=== PATIENT | female | born 1940 | race Hispanic/Latino ===

== ENCOUNTER → 2018-09-15 | Outpatient (CLI) | payer MEDICARE ==
[~2018-09-15] MED LIST: ACTOS30 MG PO; ARICEPT10 MG PO; CARVEDILOL12.5 MG PO; CIPRO500 MG PO; COUMADIN2.5 MG PO; COUMADIN3 MG PO; DIOVAN320 MG PO; ERGOCALCIFEROL1 GM; FUROSEMIDE20 MG PO; FUROSEMIDE40 MG PO; GLIPIZIDE10 MG PO; JANUVIA25 MG PO; LANTUS100 UNITS/; LEVOTHYROXINE25 MCG PO; LISINOPRIL2.5 MG PO; NAMENDA10 MG; NEXIUM40 MG PO; PANTOPRAZOLE SO40 MG PO; SIMVASTATIN40 MG PO; SPIRONOLACTONE25 MG PO; TRAMADOL-ACETAMI1 EA PO; TRILIPIX135 MG PO
[2018-09-15 08:52] LABS: CREATININE, SERUM 2.13 mg/dL (0.57-1.11)
== END ==
LOC: CT 07:17
PROVIDERS: ATTEND Internal Medicine Interventional Cardiology
DX: I20.8 Other forms of angina pectoris (principal)
CPT/HCPCS: 36415; 82565; 84520

== ENCOUNTER → 2018-09-26 | Day surgery (SDC) | payer MEDICARE ==
[~2018-09-26] VITALS: Ht 152.4 cm; Wt 69.4 kg
[~2018-09-26] MED LIST changes: +LIDOCAINE HCL 2% LOCAL INJ 5 ML SDV VIAL INJ ONE; +PROPOFOL IV EMULSION 10 MG/ML 20 ML VIAL ONE
--- OUTSIDE RECORDS SUMMARY | 2018-09-26 07:04 | XMS REPORT | Summary of Care ---
Author Author [facility] Organization [facility] Address Unknown Phone Unavailable Encounter HQ Reina(FIN) [id number] Date(s): 08/30/17 - 08/30/17 [facility] [address] [place] [address]- [phone] Discharge Disposition: Home or Self Care Attending Physician: Nafisa Lee DO Referring Physician: Nafisa Lee DO Vital Signs Most recent to 1 oldest [Reference Range]: Height 152.4 cm (08/30/17 8:52 AM) Weight 74.091 kg (08/30/17 8:52 AM) Body Mass Index 31.9 m2 (08/30/17 8:52 AM) Problem List Condition Effective Dates Status Health Status Informant Diabetes(Confirmed) Resolved Allergies, Adverse Reactions, Alerts Substance Reaction Severity Status NKDA Active Medications No data available for this section Results No data available for this section Immunizations No data available for this section Procedures No data available for this section Social History No data available for this section Assessment and Plan No data available for this section
--- OUTSIDE RECORDS SUMMARY | 2018-09-26 07:04 | XMS REPORT | Summary of Care ---
Author Author [facility] [place] Organization [facility] [place] Address Unknown Phone Unavailable Encounter HQ Encntr_alias(FIN) [id number] Date(s): 03/23/17 - 03/23/17 [facility] [place] [address] [place] [address]- [phone] Discharge Disposition: Home or Self Care Attending Physician: Tay Perera MD Vital Signs No data available for this section Problem List Condition Effective Dates Status Health [...]
--- OUTSIDE RECORDS SUMMARY | 2018-09-26 07:04 | XMS REPORT | Summary of Care ---
Author Author [facility] [place] Organization [facility] [place] Address Unknown Phone Unavailable Encounter HQ Encntr_alias(FIN) [id number] Date(s): 10/08/16 - 10/08/16 [facility] [place] [address] [place] [address]- [phone] Discharge Disposition: Home or Self Care Attending [...]
--- OUTSIDE RECORDS SUMMARY | 2018-09-26 07:04 | XMS REPORT | Continuity of Care Document ---
Author Author [facility] Organization [facility] Address Unknown Phone Unavailable Care Team Providers Care Six Color Press Operator Name Role Phone Life[employer] Information Neuro Kinetics Unavailable Unavailable Problems Problem Status Onset Date Classification Date Reported Comments Source R07.2=PRECORDIAL PAIN DR Active 07/25/2017 [facility] Z12.31 - ENCNTR SCREEN MAMMOGRAM FOR MA Active 10/01/2016 JOSUÉ Carlos Discharge Diagnosis: Acute back pain 10/14/2013 10/16/2013 [facility] BACK PAIN Active 10/13/2013 [facility] Final: Other Screening Mammogram 08/16/2014 JOSUÉ Carlos Diabetes Resolved Problem 05/29/2018 JOSUÉ Carlos,[facility] Medications Medication Details Route Status Patient Instructions Ordering Provider Order Date Source Docusate Sodium 100 MG Oral Capsule [Colace] 100 mg=1 cap, PO, BID, Constipation, # 20 cap, 0 Refill(s) Active 10/14/2013 [facility] Acetaminophen 325 MG / Hydrocodone Bitartrate 5 MG Oral Tablet [[place] 5/325] 1-2 tab, PO, Q4-6H, Pain, # 15 tab, 0 Refill(s) Active 10/14/2013 [facility] Insulin Glargine 100 UNT/ML Injectable Solution [Lantus] 25 units, Bedtime, 0 Refill(s) Active 10/14/2013 [facility] Albuterol 1 MG/ML Inhalant Solution 2.5 mg=0, INHALATION, Q6H, # 60 ea, 0 Refill(s) Active 10/14/2013 [facility] spironolactone 25 mg oral tablet =12.5 mg, PO, Daily, 0 Refill(s) Active 10/14/2013 [facility] ergocalciferol 50,000 intl units oral capsule 50,000 IntlUnit=1 cap, PO, 2x/Wk, # 24 cap, 0 Refill(s) Active 10/14/2013 [facility] Tramadol 37.5 mg, PO, TID, 0 Refill(s) Active 10/14/2013 [facility] carvedilol 12.5 mg oral tablet 12.5 mg=1 tab, PO, Q12H, # 60 tab, 0 Refill(s) Active 10/14/2013 [facility] Levothyroxine Sodium 0.025 MG Oral Tablet [Levothroid] 25 microgram=1 tab, PO, Daily, # 30 tab, 0 Refill(s) Active 10/14/2013 [facility] Lisinopril 2.5 mg, PO, Daily, 0 Refill(s) Active 10/14/2013 [facility] simvastatin 40 mg oral tablet 40 mg=1 tab, PO, Bedtime, # 30 tab, 0 Refill(s) Active 10/14/2013 [facility] Memantine hydrochloride 10 MG Oral Tablet [Namenda] 10 mg=1 tab, PO, BID, # 60 tab, 0 Refill(s) Active 10/14/2013 [facility] fenofibric acid 135 mg oral delayed release capsule 135 mg=1 cap, PO, Daily, # 30 cap, 0 Refill(s) Active 10/14/2013 [facility] Glipizide 5 MG Oral Tablet 5 mg=1 tab, PO, Daily, # 30 tab, 0 Refill(s) Active 10/14/2013 [facility] Furosemide 10 mg, PO, Daily, 0 Refill(s) Active 10/14/2013 [facility] Sodium Chloride 0.154 MEQ/ML Injectable Solution 1,000 mL, 1,000 ml/hr, Infuse Over: 1 hr, Route: IV, 1,000, Drug form: INJ, ONCE, Priority: STAT, Dosing Weight 70.455 kg, Start date: 10/14/13 0:25:00, Duration: 1 doses or times, Stop date: 10/14/13 0:25:00 Inactive 10/14/2013 [facility] Acetaminophen 325 MG / Hydrocodone Bitartrate 5 MG Oral Tablet [[place] 5/325] 1 tab, Route: PO, Dosing Weight 70.455, kg, ONCE, Start date: 10/13/13 23:35:00, Stop date: 10/13/13 23:35:00 No Longer Active 10/14/2013 [facility] Allergies, Adverse Reactions, Alerts No Known Medication Allergies Immunizations No Data Provided for This Section Results Order Name Results Value Reference Range Date Interpretation Comments Source URINE AND STOOL UA RBC 3-5 /HPF 0 - 2 10/14/2013 [facility] URINE AND STOOL UA Bacteria Moderate /HPF None Seen /HPF 10/14/2013 [facility] URINE AND STOOL UA Sq Epi Moderate /LPF Few /LPF 10/14/2013 [facility] URINE AND STOOL UA WBC 11-20 /HPF 0 - 5 10/14/2013 [facility] URINE AND STOOL Micro? Performed (10/14/13 1:40 AM) 10/14/2013 [facility] URINE AND STOOL UA Nitrite Negative (10/14/13 1:40 AM) Negative 10/14/2013 [facility] URINE AND STOOL UA Leuk Est Moderate *ABN* (10/14/13 1:40 AM) Negative 10/14/2013 [facility] URINE AND STOOL UA Blood Large *ABN* (10/14/13 1:40 AM) Negative 10/14/2013 [facility] URINE AND STOOL UA Urobilinogen 0.2 0.1 - 1.0 10/14/2013 [facility] URINE AND STOOL UA Glucose >=1000 mg/dL Negative mg/dL 10/14/2013 [facility] URINE AND STOOL UA Bili Negative *NA* (10/14/13 1:40 AM) Negative 10/14/2013 [facility] URINE AND STOOL UA Protein Trace *ABN* (10/14/13 1:40 AM) Negative 10/14/2013 [facility] URINE AND STOOL UA Ketones Negative *NA* (10/14/13 1:40 AM) Negative 10/14/2013 [facility] URINE AND STOOL UA pH 7.0 5.0 - 8.0 10/14/2013 [facility] URINE AND STOOL UA Color Yellow *NA* (10/14/13 1:40 AM) Yellow 10/14/2013 [facility] URINE AND STOOL UA Spec Grav <=1.005 *NA* (10/14/13 1:40 AM) <=1.030 10/14/2013 [facility] URINE AND STOOL UA Turbidity Slight Cloudy (10/14/13 1:40 AM) Clear 10/14/2013 [facility] CHEM PANEL eGFR 37 10/14/2013 <sup>1</sup>Result Comment: The eGFR is calculated using the CKD-EPI formula. In most young, healthy individuals the eGFR will be >90 mL/min/1.73m2. The eGFR declines with age. An eGFR of 60-89 may be normal in some populations, particularly the elderly, for whom the CKD-EPI formula has not been extensively validated. Use of the eGFR is not recommended in the following populations:& lt;br/>
Individuals with unstable creatinine concentrations, including patients and those with serious co-morbid conditions.

Patients with extremes in muscle mass or diet.

The data above are obtained from the National Kidney Disease Education Program (NKDEP) which additionally recommends that when the eGFR is used in patients with extremes of body mass index for purposes of drug dosing, the eGFR should be multiplied by the estimated BMI. [facility] CHEM PANEL Calcium Lvl 7.9 8.5 - 10.5 10/14/2013 [facility] CHEM PANEL CO2 29 24 - 32 10/14/2013 [facility] CHEM PANEL Potassium Lvl 4.1 3.5 - 5.1 10/14/2013 [facility] CHEM PANEL Chloride Lvl 101 95 - 109 10/14/2013 [facility] CHEM PANEL Glucose Lvl 354 70 - 99 10/14/2013 <sup>2</sup>Interpretive Data: Adult reference range values reflect the clinical guidelines
of the [place] [employer]. [facility] CHEM PANEL BUN 32 7 - 22 10/14/2013 [facility] CHEM PANEL Creatinine Lvl 1.4 0.5 - 1.4 10/14/2013 [facility] CHEM PANEL Sodium Lvl 136 135 - 145 10/14/2013 [facility] CHEM PANEL AGAP 10.1 10.0 - 20.0 10/14/2013 [facility] HEMATOLOGY Lymphocytes 14.3 20.0 - 40.0 10/14/2013 [facility] HEMATOLOGY Segs 76.9 45.0 - 75.0 10/14/2013 [facility] HEMATOLOGY Eosinophils 2.3 0.0 - 4.0 10/14/2013 [facility] HEMATOLOGY Basophils 0.5 0.0 - 1.0 10/14/2013 [facility] HEMATOLOGY Monocytes 6.0 2.0 - 12.0 10/14/2013 [facility] HEMATOLOGY Eosinophils # 0.2 0.0 - 0.5 10/14/2013 [facility] HEMATOLOGY Monocytes # 0.5 0.0 - 0.8 10/14/2013 [facility] HEMATOLOGY Lymphocytes # 1.1 1.0 - 5.5 10/14/2013 [facility] HEMATOLOGY Segs-Bands # 5.9 1.5 - 8.1 10/14/[address] [facility] RDW 16.2 11.5 - 14.5 10/14/[address] [facility] Platelet 231 133 - 450 10/14/[address] [facility] MPV 8.3 7.4 - 10.4 10/14/[address] [facility] MCHC 33.1 32.0 - 36.0 10/14/[address] [facility] Hct 27.4 36.0 - 48.0 10/14/[address] [facility] MCV 97.0 81.0 - 99.0 10/14/[address] [facility] MCH 32.1 27.0 - 31.0 10/14/[address] [facility] RBC 2.83 4.20 - 5.40 10/14/[address] [facility] Hgb 9.1 12.0 - 16.0 10/14/[address] [facility] WBC 7.6 3.7 - 10.4 10/14/2013 [facility] Pathology Reports No Data Provided for This Section Diagnostic Reports Report Value Date Source Chest 2 views DX EXAM: XR CHEST 2 VIEWS DATE: 05/26/2018 11:51 PAROLE DIRECTOR INDICATION: - R06.02 Shortness of breath COMPARISON: 09/17/2013 TECHNIQUE: PA and lateral chest radiographs FINDINGS: There is blunting of the right costophrenic sulcus. Mild hazy opacities are seen in the right lung base. The upper lungs are clear. The cardiomediastinal silhouette is moderately enlarged, but stable. There is no acute bony abnormality. There is a chronic compression deformity of T12. IMPRESSION: Stable cardiomegaly. Small right pleural effusion with or without mild airspace disease in the right lung base. 05/26/2018 JOSUÉ Carlos Cardiac SPECT multi studies NM Patient Name: INDY MCFARLAND : 1940; Age: 77 years Female MR: [id number] Study: Cardiac SPECT multi studies NM 08/30/2017 8:53 AM CDT Clinical Indication: - cardiac murmur COMPARISON: None TECHNIQUE: 10 mCis of Technetium 99m Cardiolite were administered for the stress portion of the examination and 30 mCis for the resting study. FINDINGS: Fixed defect is identified in the apex. CARDIAC PERFUSION STUDY: FINDINGS: The end-diastolic volume is estimated at 109 ml with end-systolic volume at 56 ml. The ejection fraction is calculated at 48%. IMPRESSION: 1. Fixed apical defect compatible with scarring. 2. Decreased ejection fraction. SL: [id number] 08/30/2017 [facility] DX Exam: Left foot x-ray, 3 views Reason for Exam: - L03.032 Cellulitis of left toe Comparison Exam: None Discussion: No acute bony abnormalities identified. No evidence seen to suggest osteomyelitis. No suspicious osteoblastic or osteolytic lesions seen to suggest pathologic involvement. Heavy vascular calcifications seen within the deep arterial system predominantly the dorsalis pedis artery. Impression: 1. No evidence seen to suggest osteomyelitis. 03/23/2017 JOSU[facility] [place] Breast Mammo Scrn CESIA incl CAD MA - BREAST MAMMO SCRN CESIA INCL CAD MA BILATERAL DIGITAL SCREENING MAMMOGRAM WITH CAD: 10/08/2016 CLINICAL: Screening/Z12.31. Current study was evaluated with a Computer Aided Detection (CAD) system. Comparison is made to exams dated: 08/13/2014 mammogram, 04/16/2013 mammogram and 04/12/2012 mammogram - [facility]. There are scattered fibroglandular densities in both breasts. Findings: No significant masses, calcifications, or other findings are seen in either breast. There has been no significant interval change. IMPRESSION: BENIGN There is no mammographic evidence of malignancy. A 1 year screening mammogram is recommended. Professional services are provided by the [facility]. Sarah finley/ap:10/11/2016 09:50:39 Rn Labor And Delivery: Blanca Mir, [facility] This exam was dictated and interpreted by [id number] at [facility]. letter sent: Normal exam Mammogram BI-RADS: 2 [facility] [place] Bone Density DXA [employer] MA - Bone Density DXA [employer] MA BONE DENSITY EVALUATION: 10/08/2016 CLINICAL DATA: Post menopausal and clinical risk for osteoporosis. M81.0 Age related osteoporosis without current pathological fracture. RISK FACTORS: . FINDINGS: Bone density evaluation was performed 10/08/2016 on the AP L3-L4 region of spine using a Hologic unit. The BMD average for the exam is 0.879 g/cm2. The T-score is -2.00 and the Z-score is 0.60. This matches the World Health Organization's criteria for osteopenia and places the patient at a medium risk for fracture. An additional bone density evaluation was performed 10/08/2016 on the right femur neck using a Hologic unit. The BMD average for the exam is 0.654 g/cm2. The T-score is -1.80 and the Z-score is 0.30. This matches the World Health Organization's criteria for osteopenia and places the patient at a medium risk for fracture. An additional bone density evaluation was performed 10/08/2016 on the right hip using a Hologic unit. The BMD average for the exam is 0.783 g/cm2. The T-score is 1.30 and the Z-score is 0.60. This matches the World Health Organization's criteria for normal bone density and places the patient within normal limits of fracture risk. An additional bone density evaluation was performed 10/08/2016 on the left femur neck using a Hologic unit. The BMD average for the exam is 0.584 g/cm2. The T- score is -2.40 and the Z-score is -0.30. This matches the World Health Organization's criteria for osteopenia and places the patient at a medium risk for fracture. An additional bone density evaluation was performed 10/08/2016 on the left hip using a Hologic unit. The BMD average for the exam is 0.807 g/cm2. The T-score is -1.10 and the Z-score is 0.70. This matches the World Health Organization's criteria for osteopenia and places the patient at a medium risk for fracture. IMPRESSION: OSTEOPENIA Patient is at medium risk for fracture. Professional services are provided by the [facility]. This exam was dictated and interpreted by [id number] at [facility]. Sarah finley/ap:10/11/2016 09:34:51 Rn Labor And Delivery: Deepali QUEZADA(Fadi)(Lorena), Martir Carlos 10/08/2016 JOSUÉ Carlos Knee 1-2 Views unilateral DX EXAMINATION: Left knee AP and lateral. HISTORY: pain; left knee pain status post fall; knee osteoarthritis FINDINGS: Frontal and lateral views of the left knee are performed without comparison. There are no fractures. There is moderate medial and patellofemoral compartment osteoarthritis. There is no definite knee effusion. There is an osteocartilaginous loose body along the posterior joint recess. Arterial atherosclerotic calcifications are noted. IMPRESSION: 1. Moderate medial and patellofemoral compartment osteoarthritis of the left knee with an osteocartilaginous loose body along the posterior joint recess. 2. Arterial atherosclerotic disease. 06/05/2015 JOSUÉ [place] Consultation Notes No Data Provided for This Section Discharge Summaries No Data Provided for This Section History and Physicals No Data Provided for This Section Vital Signs Vital Sign Value Date Comments Source Weight 74.091 08/30/2017 [facility] BMI Calculated 31.9 08/30/2017 [facility] Height 152.4 cm 08/30/2017 [facility] Temperature Oral (F) 98 F 10/14/2013 [facility] Systolic (mm Hg) 119 10/14/2013 [facility] Respitory Rate 20 10/14/2013 [facility] Diastolic (mm Hg) 45 10/14/2013 [facility] Systolic (mm Hg) 109 10/14/2013 [facility] Diastolic (mm Hg) 45 10/14/2013 [facility] Respitory Rate 18 10/14/2013 [facility] Weight 70.455 10/14/2013 [facility] Systolic (mm Hg) 118 10/14/2013 [facility] Diastolic (mm Hg) 59 10/14/2013 [facility] Heart Rate 83 10/14/2013 [facility] Respitory Rate 20 10/14/2013 [facility] Temperature Oral (F) 98.5 F 10/14/2013 [facility] Encounters Location Location Details Encounter Type Encounter Number Reason For Visit Attending Provider ADM Date DC Date Status Source [facility] [id number] Hasmukh Anderson 10/14/2013 10/14/2013 [facility] [place] [facility] [id number] Tay Perera 08/13/2014 08/14/2014 [facility] [place] [facility] [place] [facility] [id number] Tay Perera 06/05/2015 06/06/2015 [facility] [place] [facility] [place] [facility] [id number] Tay Perera 10/08/2016 10/09/2016 [facility] [place] [facility] [place] [facility] [id number] Tay Perera 03/23/2017 03/24/2017 JOSUÉ Gregorya [facility] Outpatient [id number] Nafisa Rainey Jr 08/30/2017 08/31/2017 [facility] [place] [facility] [id number] Tay Perera 05/26/2018 05/27/2018 JOSUÉ [place] Procedures No Data Provided for This Section Assessment and Plan No Data Provided for This Section Plan of Care No Data Provided for This Section Social History Social History Date Source No data available for this section 05/27/2018 JOSUÉ Gregorya No data available for this section 08/31/2017 [facility] Family History No Data Provided for This Section Advance Directives No Data Provided for This Section Functional Status No Data Provided for This Section
--- OUTSIDE RECORDS SUMMARY | 2018-09-26 07:04 | XMS REPORT | Summary of Care ---
Author Author [facility] [place] Organization [facility] [place] Address Unknown Phone Unavailable Encounter HQ Encntr_aliagustina([facility]) [id number] Date(s): 05/26/18 - 05/26/18 [facility] [place] [address] [place] [address] [phone] Discharge Disposition: Home or Self Care Attending Physician: Tay Perera MD Referring Physician: Tay Perera MD Vital Signs No [...]
--- OUTSIDE RECORDS SUMMARY | 2018-09-26 07:05 | XMS REPORT | Summary of Care ---
Author Author [facility] [place] Organization [facility] [place] Address Unknown Phone Unavailable Encounter HQ Encntr_alias(FIN) [id number] Date(s): 06/05/15 - 06/05/15 [facility] [place] [address] [place], [place] [address] [phone] Discharge Disposition: Home Attending Physician: Tay Perera MD Vital Signs [...]
--- OUTSIDE RECORDS SUMMARY | 2018-09-26 07:05 | XMS REPORT | Summary of Care ---
Author Organization Unknown Address Unknown Phone Unavailable Encounter [facility]) [phone] Date(s): 10/13/13 - 10/14/13 [facility] [address] [address] Discharge Diagnosis: Acute back pain Discharge Disposition: Home Physician Attending: Hasmukh Anderson MD Reason for Visit BACK PAIN Vital Signs 1 2 3 Most recent to oldest [Reference Range]: 98 DegF (10/14/13 3:48 AM) 98.5 DegF (10/13/13 10:59 PM) Temperature Oral [96.4-99.1 DegF] 119 mmHg (10/14/13 3:48 AM) 109 mmHg (10/14/13 2:00 AM) 118 mmHg (10/13/13 10:59 PM) Systolic Blood Pressure [90-140 mmHg] 45 mmHg *LOW* (10/14/13 3:48 AM) 45 mmHg *LOW* (10/14/13 2:00 AM) 59 mmHg *LOW* (10/13/13 10:59 PM) Diastolic Blood Pressure [60-90 mmHg] 20 BRMIN (10/14/13 3:48 AM) 18 BRMIN (10/14/13 2:00 AM) 20 BRMIN (10/13/13 10:59 PM) Respiratory Rate [14-20 BRMIN] 83 bpm (10/13/13 10:59 PM) Peripheral Pulse Rate [60-100 bpm] 70.455 kg (10/13/13 10:59 PM) Weight Problem List Condition Effective Dates Status Health Status Informant Diabetes(Confirmed) Resolved Allergies, Adverse Reactions, Alerts Substance Reaction Severity Status NKDA Active Medications albuterol 0.5% inhalation solution 2.5 mg=0, INHALATION, Q6H, # 60 ea, 0 Refill(s) Start Date: 10/14/13 Status: Ordered carvedilol 12.5 mg oral tablet 12.5 mg=1 tab, PO, Q12H, # 60 tab, 0 Refill(s) Start Date: 10/14/13 Status: Ordered Colace 100 mg oral capsule 100 mg=1 cap, PO, BID, Constipation, # 20 cap, 0 Refill(s) Start Date: 10/14/13 Status: Ordered ergocalciferol 50,000 intl units oral capsule 50,000 IntlUnit=1 cap, PO, 2x/Wk, # 24 cap, 0 Refill(s) Start Date: 10/14/13 Status: Ordered fenofibric acid 135 mg oral delayed release capsule 135 mg=1 cap, PO, Daily, # 30 cap, 0 Refill(s) Start Date: 10/14/13 Status: Ordered furosemide 10 mg, PO, Daily, 0 Refill(s) Start Date: 10/14/13 Status: Ordered glipiZIDE 5 mg oral tablet 5 mg=1 tab, PO, Daily, # 30 tab, 0 Refill(s) Start Date: 10/14/13 Status: Ordered Lantus 100 units/mL 25 units, Bedtime, 0 Refill(s) Start Date: 10/14/13 Status: Ordered Levothroid 25 mcg (0.025 mg) oral tablet 25 microgram=1 tab, PO, Daily, # 30 tab, 0 Refill(s) Start Date: 10/14/13 Status: Ordered lisinopril 2.5 mg, PO, Daily, 0 Refill(s) Start Date: 10/14/13 Status: Ordered Namenda 10 mg oral tablet 10 mg=1 tab, PO, BID, # 60 tab, 0 Refill(s) Start Date: 10/14/13 Status: Ordered [place] 5/325 oral tablet 1-2 tab, PO, Q4-6H, Pain, # 15 tab, 0 Refill(s) Start Date: 10/14/13 Stop Date: 10/19/13 Status: Ordered [place] 5/325 oral tablet 1 tab, Route: PO, Dosing Weight 70.455, kg, ONCE, Start date: 10/13/13 23:35:00, Stop date: 10/13/13 23:35:00 Start Date: 10/13/13 Stop Date: 10/14/13 Status: Completed simvastatin 40 mg oral tablet 40 mg=1 tab, PO, Bedtime, # 30 tab, 0 Refill(s) Start Date: 10/14/13 Status: Ordered Sodium Chloride 0.9% (Bolus) IV 1,000 mL, 1,000 ml/hr, Infuse Over: 1 hr, Route: IV, 1,000, Drug form: INJ, ONCE , Priority: STAT, Dosing Weight 70.455 kg, Start date: 10/14/13 0:25:00, Duratio n: 1 doses or times, Stop date: 10/14/13 0:25:00 Start Date: 10/14/13 Stop Date: 10/14/13 Status: Completed spironolactone 25 mg oral tablet =12.5 mg, PO, Daily, 0 Refill(s) Start Date: 10/14/13 Status: Ordered tramadol 37.5 mg, PO, TID, 0 Refill(s) Start Date: 10/14/13 Status: Ordered Results ELECTROLYTES Most recent to 1 oldest [Reference Range]: Sodium Lvl [135-145 136 mEq/L mEq/L] (10/14/13 12:04 AM) Potassium Lvl 4.1 mEq/L [3.5-5.1 mEq/L] (10/14/13 12:04 AM) Chloride Lvl [95-109 101 mEq/L mEq/L] (10/14/13 12:04 AM) CO2 [24-32 mEq/L] 29 mEq/L (10/14/13 12:04 AM) AGAP [10.0-20.0 10.1 mEq/L mEq/L] (10/14/13 12:04 AM) CHEM PANEL Most recent to 1 oldest [Reference Range]: Creatinine Lvl 1.4 mg/dL [0.5-1.4 mg/dL] (10/14/13 12:04 AM) eGFR 37 mL/min/1.73m2 1 *NA* (10/14/13 12:04 AM) BUN [7-22 mg/dL] 32 mg/dL *HI* (10/14/13 12:04 AM) Glucose Lvl [70-99 354 mg/dL 2 mg/dL] *HI* (10/14/13 12:04 AM) Calcium Lvl 7.9 mg/dL [8.5-10.5 mg/dL] *LOW* (10/14/13 12:04 AM) 1Result Comment: The eGFR is calculated using the CKD-EPI formula. In most young, healthy individuals the eGFR will be >90 mL/min/1.73m2. The eGFR declines with age. An eGFR of 60-89 may be normal in some populations, particularly the elderly, for whom the CKD-EPI formula has not been extensively validated. Use of the eGFR is not recommended in the following populations: Individuals with unstable creatinine concentrations, including patients and those with serious co-morbid conditions. Patients with extremes in muscle mass or diet. The data above are obtained from the National Kidney Disease Education Program ( NKDEP) which additionally recommends that when the eGFR is used in patients with extremes of body mass index for purposes of drug dosing, the eGFR should be mul tiplied by the estimated BMI. 2Interpretive Data: Adult reference range values reflect the clinical guidelines of the [place] [employer]. URINE AND STOOL Most recent to 1 oldest [Reference Range]: UA Turbidity [Clear] Slight Cloudy (10/14/13 1:40 AM) UA Color [Yellow] Yellow *NA* (10/14/13 1:40 AM) UA pH [5.0-8.0] 7.0 (10/14/13 1:40 AM) UA Spec Grav <=1.005 [<=1.030] *NA* (10/14/13 1:40 AM) UA Glucose [Negative >=1000 mg/dL mg/dL] *ABN* (10/14/13 1:40 AM) UA Blood [Negative] Large *ABN* (10/14/13 1:40 AM) UA Ketones Negative [Negative] *NA* (10/14/13 1:40 AM) UA Protein Trace [Negative] *ABN* (10/14/13 1:40 AM) UA Urobilinogen 0.2 EU/dL [0.1-1.0 EU/dL] (10/14/13 1:40 AM) UA Bili [Negative] Negative *NA* (10/14/13 1:40 AM) UA Leuk Est Moderate [Negative] *ABN* (10/14/13 1:40 AM) UA Nitrite Negative [Negative] (10/14/13 1:40 AM) UA WBC [0-5 /HPF] 11-20 /HPF *ABN* (10/14/13 1:40 AM) UA RBC [0-2 /HPF] 3-5 /HPF *ABN* (10/14/13 1:40 AM) UA Bacteria [None Moderate /HPF Seen /HPF] *ABN* (10/14/13 1:40 AM) UA Sq Epi [Few /LPF] Moderate /LPF *ABN* (10/14/13 1:40 AM) Micro? Performed (10/14/13 1:40 AM) HEMATOLOGY Most recent to 1 oldest [Reference Range]: WBC [3.7-10.4 K/CMM] 7.6 K/CMM (10/14/13 12:04 AM) RBC [4.20-5.40 2.83 M/CMM M/CMM] *LOW* (10/14/13 12:04 AM) Hgb [12.0-16.0 g/dL] 9.1 g/dL *LOW* (10/14/13 12:04 AM) Hct [36.0-48.0 %] 27.4 % *LOW* (10/14/13 12:04 AM) MCV [81.0-99.0 fL] 97.0 fL (10/14/13 12:04 AM) MCH [27.0-31.0 pg] 32.1 pg *HI* (10/14/13 12:04 AM) MCHC [32.0-36.0 33.1 g/dL g/dL] (10/14/13 12:04 AM) RDW [11.5-14.5 %] 16.2 % *HI* (10/14/13 12:04 AM) Platelet [133-450 231 K/CMM K/CMM] (10/14/13 12:04 AM) MPV [7.4-10.4 fL] 8.3 fL (10/14/13 12:04 AM) Segs [45.0-75.0 %] 76.9 % *HI* (10/14/13 12:04 AM) Lymphocytes 14.3 % [20.0-40.0 %] *LOW* (10/14/13 12:04 AM) Monocytes [2.0-12.0 6.0 % %] (10/14/13 12:04 AM) Eosinophils [0.0-4.0 2.3 % %] (10/14/13 12:04 AM) Basophils [0.0-1.0 0.5 % %] (10/14/13 12:04 AM) Segs-Bands # 5.9 K/CMM [1.5-8.1 K/CMM] (10/14/13 12:04 AM) Lymphocytes # 1.1 K/CMM [1.0-5.5 K/CMM] (10/14/13 12:04 AM) Monocytes # [0.0-0.8 0.5 K/CMM K/CMM] (10/14/13 12:04 AM) Eosinophils # 0.2 K/CMM [0.0-0.5 K/CMM] (10/14/13 12:04 AM) Medications Administered During Your Visit No data available for this section Immunizations No data available for this section
--- OUTSIDE RECORDS SUMMARY | 2018-09-26 07:05 | XMS REPORT | Summary of Care ---
Author Organization Unknown Address Unknown Phone Unavailable Encounter [facility]) [id number] Date(s): 08/13/14 - 08/13/14 [facility] Outpatient Imaging - [address] [id number] [phone] Final: Other Screening Mammogram Discharge Disposition: Home Physician Attending: Tay Perera MD Vital Signs No data [...]
[2018-09-26 09:59] VITALS: BP 137/52
[2018-09-26 10:24] LABS: ANION GAP 13.5 mmol/L (8-16); CALCIUM 9.2 mg/dL (8.4-10.2); CREATININE, SERUM 1.79 mg/dL (0.57-1.11); POTASSIUM 5.5 mmol/L (3.5-5.1)
--- NOTE | 2018-09-26 11:20 | NUR ---
1100 - pt received for BASILIA to ENDO 3, placed on bedside monitoring. pt positioned for procedure left side IV site patent to right AC , VS wnl, NSR rhythm 1104 - hurricaine spray (spray 1) to oral cavity by Anesthesia 1107 - hurricaine spray (spray 2) to oral cavity by Anesthesia 1109 - all responsible staff present, Timeout performed 1110 - bite block positioned and BASILIA probe passed 1114 - agitated saline injected for bubble study 1115 - BASILIA probe removed , no gross trauma or distress observed. Pt transported to PACU 20 for further recovery by [facility] staff
== END | disposition home or self-care (01) ==
LOC: CATH LAB 07:02
PROVIDERS: ATTEND Internal Medicine Interventional Cardiology
DX: I34.0 Nonrheumatic mitral (valve) insufficiency (principal); I25.118 Atherosclerotic heart disease of native coronary artery with other forms of angina pectoris; E11.22 Type 2 diabetes mellitus with diabetic chronic kidney disease; I13.0 Hypertensive heart and chronic kidney disease with heart failure and stage 1 through stage 4 chronic kidney disease, or unspecified chronic kidney disease; N18.9 Chronic kidney disease, unspecified; I50.9 Heart failure, unspecified; E03.9 Hypothyroidism, unspecified; Z79.4 Long term (current) use of insulin; Z79.82 Long term (current) use of aspirin; Z86.73 Personal history of transient ischemic attack (TIA), and cerebral infarction without residual deficits
CPT/HCPCS: 36415; 80048; 93312; 93325; 93320; J2001; J2704

== ENCOUNTER 2019-05-19 19:07 | Emergency (ER) | payer MEDICARE ==
[~2019-05-19] VITALS: Ht 152.4 cm; Wt 69.4 kg
[~2019-05-19 19:07] MED LIST changes: -LIDOCAINE HCL 2% LOCAL INJ 5 ML SDV VIAL INJ ONE; -PROPOFOL IV EMULSION 10 MG/ML 20 ML VIAL ONE
--- NOTE | 2019-05-19 21:19 | Diagnostic Imaging Report ---
EXAM: Left Lower Extremity Venous Duplex Ultrasound INDICATION: Left lower extremity pain and swelling COMPARISON: None TECHNIQUE: Gutierrez scale, color Doppler and spectral waveform analysis of the unilateral lower extremity deep venous system was performed. FINDINGS: Common Femoral: Fully compressible with normal spontaneous waveforms. Proximal Greater Saphenous: Fully compressible. Femoral: Mid femoral vein is partially compressible with eccentric thrombus. Normal flow on spectral Doppler interrogation. Proximal Deep Femoral: Normal spontaneous waveforms. Popliteal: Fully compressible with normal spontaneous waveforms. IMPRESSION: Nonocclusive thrombus in the mid left femoral vein. Signed by: Dr. Deepa Delgado MD on 05/19/2019 9:17 PM
[2019-05-19] MEDS ORDERED: ENOXAPARIN SODIUM INJ 100 MG/ML SYR SC ONE (21:21)
[2019-05-19] MEDS ORDERED: ENOXAPARIN INJ 80 MG/0.8 ML SYR SC STA (21:41)
== END 2019-05-19 21:45 | disposition home or self-care (01) ==
LOC: FSED 19:07
DX: M79.605 Pain in left leg (principal); I82.412 Acute embolism and thrombosis of left femoral vein; M79.89 Other specified soft tissue disorders; I10 Essential (primary) hypertension; E11.9 Type 2 diabetes mellitus without complications
CPT/HCPCS: 93971; 99283; J1650